=== PATIENT | female | born 1950 | race Caucasian/White ===

== ENCOUNTER 2019-01-05 12:04 | Emergency (ER) | payer MEDICARE, BC ==
--- NOTE | 2019-01-05 13:02 | ED ---
Complex/Multi-Sys Presentation - HPI Summary HPI Summary: Pt is a 68 y/o F presenting to the ED with a chief complaint of nausea. She states that the nausea came on this morning, and later in the day she developed lightheadedness, SOB, palpitations described as irregular, and some anxiety. She also notes her R hip hurts worse than baseline (prior dx of bursitis), and pain upon palpation of the abd. She denies diaphoresis, CP, constipation, fever , and cough. Medications reviewed. Allergies noted. - History Of Current Complaint Chief Complaint: EDWeakness Time Seen by Provider: 01/05/19 12:52 Hx Obtained From: Patient Onset/Duration: Gradual Onset, Lasting Hours, Still Present Timing: Constant, Hours Severity Currently: Moderate Severity Initially: Moderate Associated Signs And Symptoms: Positive: SOB, Palpitations, Nausea, Abdominal Pain. Negative: Cough, Chest Pain, Vomiting, Fever, Diaphoresis - Allergies/Home Medications Allergies/Adverse Reactions: Allergies Allergy/AdvReac Type Severity Reaction Status Date / Time No Known Allergies Allergy Verified 01/05/19 12:13 PMH/Surg Hx/FS Hx/Imm Hx Previously Healthy: Yes Endocrine/Hematology History: Denies: Hx Diabetes Cardiovascular History: Reports: Other Cardiovascular Problems/Disorders - LBBB Denies: Hx Hypertension Respiratory History: Reports: Hx Asthma, Other Respiratory Problems/Disorders - nodule on lungs Infectious Disease History: No Infectious Disease History: Denies: Traveled Outside the [place] in Last 30 Days - Family History Known Family History: Negative: Diabetes - Social History Alcohol Use: Occasionally Hx Substance Use: No Substance Use Type: Reports: None Hx Tobacco Use: No Smoking Status (MU): Never Smoked Tobacco Review of Systems Negative: Fever, Skin Diaphoresis Positive: Palpitations. Negative: Chest Pain Positive: Shortness Of Breath. Negative: Cough Positive: Abdominal Pain, Nausea. Negative: Other - constipation Positive: Arthralgia - R hip pain Neurological: Other - lightheadedness Positive: Anxious All Other Systems Reviewed And Are Negative: Yes Physical Exam - Summary Physical Exam Summary: Constitutional: Well-developed, Well-nourished, Alert. (-) Distressed Skin: Warm, Dry HENT: Normocephalic; Atraumatic Eyes: Conjunctiva normal Neck: Musculoskeletal ROM normal neck. (-) JVD, (-) Stridor, (-) Tracheal deviation Cardio: Rhythm regular, rate normal, Heart sounds normal; Intact distal pulses; The pedal pulses are 2+ and symmetric. Radial pulses are 2+ and symmetric. (-) Murmur Pulmonary/Chest wall: Tachypnic (-) Respiratory distress, (-) Wheezes, (-) Rales Abd: Soft, mild diffuse abd tenderness (-) Distension, (-) Guarding, (-) Rebound Musculoskeletal: (-) Edema Lymph: (-) Cervical adenopathy Neuro: Alert, Oriented x3 Psych: Mood and affect anxious Triage Information Reviewed: Yes Vital Signs On Initial Exam: Initial Vitals Temp Pulse Resp BP Pulse Ox 98.4 F 70 18 160/102 100 01/05/19 12:12 01/05/19 12:12 01/05/19 12:12 01/05/19 12:12 01/05/19 12:12 Vital Signs Reviewed: Yes Procedures - Sedation Patient Received Moderate/Deep Sedation with Procedure: No Diagnostics - Vital Signs Vital Signs Temp Pulse Resp BP Pulse Ox 01/05/19 12:12 98.4 F 70 18 160/102 100 - Laboratory Result Diagrams: 01/05/19 13:15 01/05/19 13:15 Lab Statement: Any lab studies that have been ordered have been reviewed, and results considered in the medical decision making process. - EKG 1219 Cardiac Rate: NL - 61bpm EKG Rhythm: Sinus Rhythm ST Segment: Non-Specific Ectopy: None Summary of EKG Findings: EKG at 1219 shows NSR at 61bpm with minimal ST depression in v3, v4, and v6, and minimal ST elevation in v1-v3. No STEMI. 1402 Cardiac Rate: NL - 79bpm EKG Rhythm: Sinus Rhythm ST Segment: Normal Ectopy: None Summary of EKG Findings: EKG at 1402 shows NSR at 79bpm with no change from previous. No STEMI. Complex Multi-Symp Course/Dx - Diagnoses Provider Diagnoses: Nausea, Hyperventilation Discharge ED - Sign-Out/Discharge Documenting (check all that apply): Patient Departure Patient Received Moderate/Deep Sedation with Procedure: No - Discharge Plan Condition: Stable Disposition: HOME Prescriptions: Ondansetron TAB* [Zofran 4 MG Tab*] 4 mg PO Q8HR #12 tab Patient Education Materials: Hyperventilation (ED), Acute Nausea and Vomiting ( ED) Referrals: [facility] [Outside] Additional Instructions: Please follow up with your primary care provider in [place] in the next 1-3 days. Return to the emergency department with any new or worsening symptoms. - Billing Disposition and Condition Condition: STABLE Disposition: Home - Attestation Statements Document Initiated by Scribe: Yes Documenting Scribe: Bharti Friend Provider For Whom Scribe is Documenting (Include Credential): Lucho Piper MD. Scribe Attestation: Bharti Mejía, scribed for Lucho Piper MD. on 01/21/19 at 0631. Scribe Documentation Reviewed: Yes Provider Attestation: The documentation as recorded by the Bharti rueda accurately reflects the service I personally performed and the decisions made by , Lucho Piper MD. Status of Scribe Document: Viewed
[2019-01-05] MEDS ORDERED: Ondansetron ODT TAB* 4 MG PO ONE (13:04)
[2019-01-05 13:22] LABS: ABS Monocytes 0.5 10^3/ul (0-0.8); ABS Neutrophils 11.5 10^3/ul (1.5-7.7); Eosinophil % 0.3 %; Hematocrit 44 % (35-47); Hemoglobin 14.9 g/dL (12.0-16.0); Lymphocyte % 7.3 %; Mean Corpuscular HGB Conc 34 g/dL (31-36); Mean Corpuscular Hemoglobin 30 pg (27-31); Mean Corpuscular Volume 88 fL (80-97); Mean Platelet Volume 8.5 fL (7.4-10.4); Platelet Count 259 10^3/uL (150-450); Red Cell Distribution Width 14 % (10-15); White Blood Count 13.1 10^3/uL (3.5-10.8)
[2019-01-05 13:46] LABS: Albumin 4.1 g/dL (3.2-5.2); Albumin/Globulin Ratio 1.4 (1-3); BUN/Creatinine Ratio 20.6 (8-20); Calcium 9.6 mg/dL (8.6-10.3); EGFR African American 61.7 (>60); Potassium 3.9 mmol/L (3.5-5.0); Total Bilirubin 0.4 mg/dL (0.2-1.0); Total Protein 7.1 g/dL (6.4-8.9)
[2019-01-05 14:15] VITALS: BP 131/73
== END 2019-01-05 14:25 | disposition home or self-care (01) ==
LOC: ED 12:04
DX: R11.0 Nausea (principal); R06.02 Shortness of breath; R06.4 Hyperventilation; R00.2 Palpitations; R10.817 Generalized abdominal tenderness; M25.551 Pain in right hip
CPT/HCPCS: 36415; 80053; 83690; 84484; 85025; 93005; 99282; A9270-GY